=== PATIENT | female | born 1945 | race Caucasian/White ===

== ENCOUNTER 2023-09-30 08:06 | Emergency (ER) | payer MEDICARE, OTHER ==
[2023-09-30] MEDS: Acetaminophen 325 MG Tab PO ONE (08:26)
[2023-09-30] MEDS ORDERED: Sodium Chloride 0.9% 10 ML Syringe FLUSH PRN (09:33)
[2023-09-30] MEDS: LORazepam 2 MG/ML SDV IVPUSH ONE (10:21)
[2023-09-30 11:06] LABS: A/G RATIO 1.1 (1-2); ALBUMIN 3.8 g/dl (3.4-5.0); ANION GAP 14.9 (5-15); BILIRUBIN TOTAL 0.7 mg/dL (0.2-1.0); BUN/CREATININE RATIO 18.6 (14-18); CALCIUM 8.8 mg/dL (8.5-10.1); CREATININE 0.7 mg/dL (0.55-1.02); EST CRCL DRUG DOSING (CG) 59.04 mL/min; POTASSIUM,K 3.9 mEq/L (3.5-5.1); PROTEIN TOTAL,TP 7.4 g/dl (6.4-8.2)
[2023-09-30] MEDS: Gadobenate Dimeglumine 529 MG/ML 15 ML SDV IVPUSH ONE (11:25)
[2023-09-30] MEDS: Sodium Chloride 0.9% 10 ML Syringe FLUSH SCH (11:25)
== END 2023-09-30 13:19 | disposition home or self-care (01) ==
LOC: JD.ED 08:06
DX: S06.0X0A Concussion without loss of consciousness, initial encounter (principal); M19.90 Unspecified osteoarthritis, unspecified site; Z79.82 Long term (current) use of aspirin; Z88.8 Allergy status to other drugs, medicaments and biological substances; Z88.5 Allergy status to narcotic agent; W01.190A Fall on same level from slipping, tripping and stumbling with subsequent striking against furniture, initial encounter
CPT/HCPCS: 36415; 70450; 70553; 72125; 80053; 96374; 99285; A9270; A9577; J2060; J3490